=== PATIENT | female | born 1990 | race Caucasian/White ===

== ENCOUNTER → 2020-01-25 11:04 | Outpatient (CLI) | payer BC, SELFPAY ==
--- NOTE | ~2020-01-25 | US_ITS ---
EXAMINATION: US OB transvaginal DATE: 01/25/2020 11:24 INDICATION: Spotting during first trimester TECHNIQUE: Real-time pelvic transabdominal and transvaginal ultrasound was performed. COMPARISON: None. FINDINGS: The uterus measures 7.9 x 3.1 x 4.4 cm. The endometrial complex measures 4 mm. No intrauter ine gestational sac is identified. The right ovary measures 2.7 x 2.9 x 2.3 cm. The left ovary measures 3.4 x 1.9 x 2.6 cm. There is no free fluid in the pelvis. IMPRESSION: 1. of unknown location. Although no intrauterine gestational sac is seen, this may be due t o early gestation. If the patient is clinically stable, recommend followup with serial beta-hCG and u ltrasound. Reviewed, dictated and finalized at location B. IMPRESSION: 1. of unknown location. Although no intrauterine gestational sac is s een, this may be due to early gestation. If the patient is clinically stable, r ecommend followup with serial beta-hCG and ultrasound.
== END ==
PROVIDERS: Visit Provider Obstetrics & Gynecology Gynecology
DX: O26.851 Spotting complicating pregnancy, first trimester (principal); Z3A.00 Weeks of gestation of pregnancy not specified
CPT/HCPCS: 76817

== ENCOUNTER 2020-01-27 10:57 | Outpatient (RCR) | payer BC, SELFPAY ==
[2020-01-25 12:40] LABS: Beta HCG Quantitative < 2.39 mIU/ML
[2020-01-27 11:37] LABS: Beta HCG Quantitative < 2.39 mIU/ML
== END 2020-04-24 23:59 | disposition home or self-care (01) ==
LOC: ANHLAB 10:57
PROVIDERS: Visit Provider Obstetrics & Gynecology Gynecology
DX: O26.851 Spotting complicating pregnancy, first trimester (principal); Z3A.00 Weeks of gestation of pregnancy not specified
CPT/HCPCS: 36415; 84702; 85461

== ENCOUNTER 2020-03-08 13:06 | Outpatient (RCR) | payer BC, SELFPAY | END 2020-06-04 23:59 | disposition home or self-care (01) | LOC: ANHLAB 13:06 | PROVIDERS: Visit Provider Obstetrics & Gynecology Gynecology | DX: O26.21 Pregnancy care for patient with recurrent pregnancy loss, first trimester (principal); Z3A.00 Weeks of gestation of pregnancy not specified | CPT/HCPCS: 36415; 84702 ==

== ENCOUNTER → 2020-03-15 09:43 | Outpatient (CLI) | payer BC, SELFPAY ==
--- NOTE | ~2020-03-15 | US_ITS ---
EXAMINATION: US OB transvaginal DATE: 03/15/2020 10:27 INDICATION: History of spontaneous . TECHNIQUE: Real-time transabdominal obstetric ultrasound. FINDINGS: The uterus measures 9.9 x 6.8 x 7.1 cm. There is an intrauterine gestational sac, with pole devante ntified. The crown rump length measures 1.1 cm, which correlates with a estimated gestational age of 7 weeks 1 day. heart tones are identified measuring 153. The ovaries are normal. IMPRESSION: 1. SL IUP with an EGA of 7 weeks, 1 days (EDC by current ultrasound of 10/31/2020). Reviewed, dictated and finalized at location A. IMPRESSION: 1. SL IUP with an EGA of 7 weeks, 1 days (EDC by current ultrasound of ).
== END ==
PROVIDERS: Visit Provider Obstetrics & Gynecology Gynecology
DX: O26.21 Pregnancy care for patient with recurrent pregnancy loss, first trimester (principal); Z3A.01 Less than 8 weeks gestation of pregnancy
CPT/HCPCS: 76817

== ENCOUNTER 2020-11-06 11:37 | Inpatient (IN) | payer BC, SELFPAY ==
[2020-11-06] VITALS (89 sets, daily range): BP systolic 70–138; BP diastolic 42–83; PULSE 51–153; RESP 18–20; TEMP 36.6–36.8; O2SAT 98–100; BMI 27.8
[2020-11-06 12:25] LABS: Basophils Percent Auto 0.3 % (0.2-1.2); Eosinophils Absolute Auto 0.1 K/mm3 (0-0.3); Eosinophils Percent Auto 0.7 % (0-4.4); Hematocrit 36.6 % (37.0-47.0); Hemoglobin 12.2 g/dL (12.0-15.0); Immature Granulocyte Absolute 0.04 K/mm3 (0.00-0.031); Immature Granulocyte Percent A 0.5 % (0-0.5); Lymphocytes Absolute Auto 1.72 K/mm3 (0.9-3.2); Lymphocytes Percent Auto 19.7 % (18.3-44.2); Mean Corpuscular HGB Conc 33.3 g/dl (32-36); Mean Corpuscular Hemoglobin 30.7 pg (26-34); Mean Platelet Volume 12.3 fl (7.4-10.4); Monocytes Absolute Auto 0.7 K/mm3 (0.1-0.6); Monocytes Percent Auto 8.1 % (2.6-8.5); Neutrophils Absolute Auto 6.2 K/mm3 (1.3-6.7); Neutrophils Percent Auto 70.7 % (45.5-73.1); Platelet Count Result 171 k/mm3 (150-375); Red Blood Count 3.98 M/mm3 (4.2-5.4); Red Cell Distribution Width 12.8 % (11.5-14.5); White Blood Count 8.8 K/mm3 (4.5-10.0)
[2020-11-06] MEDS: LACTATED RINGERS 1,000 ML 125 ML IV CONT ×3 (12:48→20:52)
[2020-11-06] MEDS: OXYTOCIN 30 UNITS/NS 500 ML 30 UNITS/500 ML BAG 6 UNITS IV CONT (12:49)
--- NOTE | 2020-11-06 12:55 | LDADM ---
This patient, Ayanna Aguilar, was admitted to Labor/Delivery/Recovery 104 on 11/06/20 at 11:37. Plans for labor, pain management and were discussed with patient. Patient is oriented to hospital policies and general routines including ID bracelet, bed and alarms, visiting hours, pain management, procedures, bathroom and other care routines, personal items, smoking policy, room service/diet and guest tray routines, infant security routines, and visiting hours. Patient is encouraged to report perceived risks to care and to ask questions if she does not understand what she is told or what she should do. See OBIX for further documentation.
[2020-11-06 18:37] LABS: HIV 1/2 Ab P24 Ag Result Negative (Negative)
--- NOTE | 2020-11-06 19:53 | WPDANESEPP ---
Anes - Eval Pre Procedure Procedure: labor epidural Date/Time: 11/06/20 19:53 Surgeon: kwesi Preop Diagnosis: labor pain Pre Op Diagnosis: IOL Patient Data Age: 30 Gender: F Height: 1.8 m Weight: 90.4 kg Last Vital Signs Temp 36.6 C 11/06/20 18:19 Pulse 67 11/06/20 19:30 Resp 18 11/06/20 18:19 BP 70/50 L 11/06/20 19:30 Allergies Allergy/AdvReac Type Severity Reaction Status Date / Time cefaclor Allergy Unknown Rash Verified 03/20/20 13:29 Home Medications Medication Instructions Recorded Confirmed Type PNV cmb#95-ferrous fumarate-FA 1 tablet PO DAILY 10/04/20 10/04/20 History [] aspirin 81 mg PO DAILY 10/04/20 10/04/20 History ergocalciferol (vitamin D2) 1,250 mcg PO WEEKLY 10/04/20 10/04/20 History [Vitamin D2] Laboratory Tests 11/06/20 11/06/20 11/06/20 12:00 12:00 12:00 WBC 8.8 K/mm3 K/mm3 (4.5-10.0) RBC 3.98 M/mm3 L M/mm3 (4.2-5.4) Hgb 12.2 g/dL g/dL (12.0-15.0) Hct 36.6 % L % (37.0-47.0) MCV 92.0 fl fl (80-100) MCH 30.7 pg pg (26-34) MCHC 33.3 g/dl g/dl (32-36) RDW 12.8 % % (11.5-14.5) Plt Count 171 k/mm3 k/mm3 (150-375) MPV 12.3 fl H fl (7.4-10.4) Immature Gran % (Auto) 0.5 % % (0-0.5) Neut % (Auto) 70.7 % % (45.5-73.1) Lymph % (Auto) 19.7 % % (18.3-44.2) [place] % (Auto) 8.1 % % (2.6-8.5) Eos % (Auto) 0.7 % % (0-4.4) Baso % (Auto) 0.3 % % (0.2-1.2) Lymph # (Auto) 1.72 K/mm3 K/mm3 (0.9-3.2) [place] # (Auto) 0.7 K/mm3 H K/mm3 (0.1-0.6) Eos # (Auto) 0.1 K/mm3 K/mm3 (0-0.3) Baso # (Auto) 0.0 K/mm3 K/mm3 (0.0-0.1) Abs Immat Gran (auto) 0.04 K/mm3 H K/mm3 (0.00-0.031) Absolute Neuts (auto) 6.2 K/mm3 K/mm3 (1.3-6.7) Absolute Nucleated RBC 0.0 K/mm3 K/mm3 (0.0-0.012) Nucleated RBC % 0.0 % % (0.0-0.2) RPR Pending HIV 1&2 Ab/P24 Ag 4thGn Blood Type A Positive Antibody Screen Negative 11/06/20 17:33 WBC RBC Hgb Hct MCV MCH MCHC RDW Plt Count MPV Immature Gran % (Auto) Neut % (Auto) Lymph % (Auto) [place] % (Auto) Eos % (Auto) Baso % (Auto) Lymph # (Auto) [place] # (Auto) Eos # (Auto) Baso # (Auto) Abs Immat Gran (auto) Absolute Neuts (auto) Absolute Nucleated RBC Nucleated RBC % RPR HIV 1&2 Ab/P24 Ag 4thGn Negative (Negative) Blood Type Antibody Screen Patient hx anesthesia problems: none Family hx anesthesia problems: none PMFSH Past Medical History Medical History TARA positive (~08/2018) Rheumatoid arthritis Seropositive rheumatoid arthritis of multiple joints (~2015) Family History Family History Father Hypertension Mother Family history of type 1 diabetes mellitus Other Family history of congestive heart failure Family history of lung cancer Family history of osteoporosis Family history of type 2 diabetes mellitus Social History Social History Smoking status: Never smoker Alcohol intake: current Substance use: never Gender identity (if verbalized by the patient): Female Spiritual care concerns: No Exam Day of Procedure 11/06/20 19:53 Patient weight: normal Heart: regular rate and rhythm Lungs: clear to auscultation and normal air movement Airway: Mallampati scale class II Neurological: alert and oriented
--- NOTE | 2020-11-06 20:02 | WPDANESEFPP ---
Anes - Eval Final PreProcedure Day of Procedure 11/06/20 20:02 Patient weight: normal Heart: regular rate and rhythm Lungs: clear to auscultation and normal air movement Airway: Mallampati scale Neurological: alert and oriented ASA classification: II Anesthetic plan: proceed Anesthesia type and monitoring: regional epidural and standard monitoring Informed Consent: The patient's anesthetic plan and its attendant risks and benefits were discussed with the patient/family/POA. Questions were solicited and answers provided to the satisfaction of the patient/family/POA.
[2020-11-07] VITALS (213 sets, daily range): BP systolic 82–166; BP diastolic 46–129; PULSE 46–261; RESP 16–18; TEMP 36.4–37.1; O2SAT 83–100
[2020-11-07] MEDS: LACTATED RINGERS 1,000 ML 125 ML IV CONT (02:03)
--- NOTE | 2020-11-07 04:28 | WPDOBADMIT ---
Obstetrics - Admit Note Admission Note: record reviewed. No pertinent additions to the history and/or any subsequent changes in the physical findings that are not consistent with the expected course of the were found. Additions to the history and/or subsequent changes in the physical findings follow. Here from office for MIL at 40 6/7 wks 2-3/70/-2 AROM with clear fluid at approx. 1300 FHTs reactive
--- NOTE | 2020-11-07 04:29 | PM.OBPRVD ---
OB - Delivery Note Procedure Delivery date: 11/07/20 events: Labor Induction Intrapartal events: None Induction method: AROM and per pitocin protocol Delivery monitor: external FHT and internal uterine Route of delivery: Laceration Description: Perineal - 2nd Degree (midline with upward B extension of inner labia) Delivery repair: vicryl (3-0 ) Specimen: Yes (placenta) Quantitative Blood Loss (ml): 600 Anesthesia type: Epidural Disposition: floor Baby Date of : 11/07/20 Weeks of gestation at delivery: 41 gender: Male Weight (pounds): 7 Weight (ounces): 15 presentation: vertex position: Right Occiput Anterior Placenta delivery description: Spontaneous cord vessel description: 3 Vessels score one minute: 8 score five minutes: 9
--- NOTE | 2020-11-07 04:31 | PM.OBDSVD ---
DS: Admitting Diagnosis Admitting Diagnosis Admitting Diagnosis: 40 6/7 wks for MIL DS: Discharge Diagnosis Discharge Diagnosis (1) (normal spontaneous vaginal delivery): Code(s): O80 - Encounter for full-term uncomplicated delivery Status: Acute OB - DS: Summary OB Procedures : Ultrasound OB Procedures Intrapartum: Spontaneous Vag Delivery OB Procedures: : None Peripartum Data Delivery Method: Natural Vaginal Laceration Description: Perineal - 2nd Degree (midline with upward B extensions to labia) complications: none Status at Discharge Functional status at discharge: independent ambulation Overall status at discharge: patient is progressing back to baseline Time Spent with Patient Time attestation: Total time spent providing and/or coordinating discharge services: DS: Data Data Completed and Pending Labs on day of discharge: Labs from last 24 hours 11/06/20 11/06/20 11/06/20 17:33 12:00 12:00 WBC RBC Hgb Hct MCV MCH MCHC RDW Plt Count MPV Immature Gran % (Auto) Neut % (Auto) Lymph % (Auto) [place] % (Auto) Eos % (Auto) Baso % (Auto) Lymph # (Auto) [place] # (Auto) Eos # (Auto) Baso # (Auto) Abs Immat Gran (auto) Absolute Neuts (auto) Absolute Nucleated RBC Nucleated RBC % RPR Pending HIV 1&2 Ab/P24 Ag 4thGn Negative Blood Type A Positive Antibody Screen Negative 11/06/20 12:00 WBC 8.8 RBC 3.98 L Hgb 12.2 Hct 36.6 L MCV 92.0 MCH 30.7 MCHC 33.3 RDW 12.8 Plt Count 171 MPV 12.3 H Immature Gran % (Auto) 0.5 Neut % (Auto) 70.7 Lymph % (Auto) 19.7 [place] % (Auto) 8.1 Eos % (Auto) 0.7 Baso % (Auto) 0.3 Lymph # (Auto) 1.72 [place] # (Auto) 0.7 H Eos # (Auto) 0.1 Baso # (Auto) 0.0 Abs Immat Gran (auto) 0.04 H Absolute Neuts (auto) 6.2 Absolute Nucleated RBC 0.0 Nucleated RBC % 0.0 RPR HIV 1&2 Ab/P24 Ag 4thGn Blood Type Antibody Screen Discharge Plan Discharge Attending physician on discharge: Steffanie Barnett Discharging Clinician: Oleg Morgan Anticipated Discharge Date/Time: 11/09/20 04:34 Patient Disposition: Home, Self-Care Activity: may shower and pelvic rest Diet: regular Discharge Instructions: Education: Mom and Baby Guide Given to: Mother Follow-Up: Call your delivering provider's office for an appointment to be seen in: 6 Weeks Mom and baby should come to the [facility] for the follow-up appointment. Appointment Date/Time: Wednesday, November 11, 2020 at 8:00 a.m. What to expect at your follow-up visit: Blood Pressure Check Physical Assessment Call [phone] if you are unable to keep your appointment time. BREAST CARE: * Wear a snug supportive bra. * For engorgement discomfort: Breast Feeding: * Apply warm moist washcloths * Express milk as needed to relieve engorgement * Wear loose clothing * For sore nipples: * Identify correct latch-on * Apply warm moist washcloths before and after nursing * Air dry nipples after nursing * May apply Lansinoh cream to nipples EPISIOTOMY/PERINEAL CARE: * Until bleeding stops, use your maci bottle after urinating * Change your pad frequently throughout the day * You may take sitz baths several times a day (fill your bathtub with warm water and soak for 20 minutes.) Do NOT bathe in the water * No tub baths until seen by your physician - You may shower ACTIVITY: * Rest as much as possible. * Do not exercise or lift anything heavier than your baby (such as laundry or other children.) * Avoid stairs or driving as much as possible. * Do not put anything into the vagina. No douching, tampons, or sexual activity until seen by physician. NOTIFY PHYSICIAN IF YOU HAVE ANY QUESTIONS OR IF ANY OF THE FOLLOWING SYMPTOMS OCCUR: * If your perineum bec
[2020-11-07] MEDS: OXYTOCIN 30 UNITS/NS 500 ML 30 UNITS/500 ML BAG 125 UNITS IV CONT (04:39)
[2020-11-07] MEDS: METHYLERGONOVINE MALEATE 0.2 MG/ML VIAL IM ×2 (05:10→07:08)
[2020-11-07] MEDS: miSOPROStol 200 MCG TABLET 1000 MCG RECTAL ×2 (05:38→09:25)
[2020-11-07] MEDS: fentaNYL CITRATE INJ (*CRX) 100 MCG/2 ML VIAL IV PUSH (06:55)
--- NOTE | 2020-11-07 07:30 | PM.OBPNVD ---
OB - PN: Subj Subjective Date/time seen: 11/07/20 07:30 Called by RN for gush of bleeding 300 cc ordered Methergine called again for less bleeding about 100 with small clots given Cytotec called again with total of 1350 cc (600 delivery+pp)and continuous trickle, arrived to hospital and bleeding had stopped last 3 15 min checks with no clots, minimal trickle plan methergine 0.2 mg po q 6 x 4 OB - PN: Obj Data Labs CBC & Chem 7: 11/06/20 12:00 Labs: Laboratory Results - last 24 hr 11/06/20 11/06/20 11/06/20 12:00 12:00 17:33 WBC 8.8 RBC 3.98 L Hgb 12.2 Hct 36.6 L MCV 92.0 MCH 30.7 MCHC 33.3 RDW 12.8 Plt Count 171 MPV 12.3 H Immature Gran % (Auto) 0.5 Neut % (Auto) 70.7 Lymph % (Auto) 19.7 [place] % (Auto) 8.1 Eos % (Auto) 0.7 Baso % (Auto) 0.3 Lymph # (Auto) 1.72 [place] # (Auto) 0.7 H Eos # (Auto) 0.1 Baso # (Auto) 0.0 Abs Immat Gran (auto) 0.04 H Absolute Neuts (auto) 6.2 Absolute Nucleated RBC 0.0 Nucleated RBC % 0.0 HIV 1&2 Ab/P24 Ag 4thGn Negative Blood Type A Positive Antibody Screen Negative OB - PN A/P Time Spent With Patient Time: Total time spent is greater than 50% in coordination of care (as documented) at patient's floor/unit and/or counseling patient:
[2020-11-07] MEDS: HYDROcodone/acetaminophen (*CRX) 5-325 MG TABLET 1 TAB PO (07:34)
[2020-11-07 08:30] LABS: Rapid Plasma Reagin Non-Reactive (NonReactive)
[2020-11-07] MEDS: WITCH HAZEL 40 PADS 1 PAD TOPICAL (09:38)
[2020-11-07] MEDS: BENZOCAINE 20% AER SPR (*SP) 56 GM CAN 1 SPRAY TOPICAL (09:38)
--- NOTE | 2020-11-07 13:50 | PC.NURSE ---
Consult with pt., mother reports just completed feeding. Mother states eagerly latches with out difficulties or discomfort. Reviewed infant feeding cues, frequencies, duration of feedings, feeding elimination flow sheet, and signs of adequate intake. Demonstrated stimulation techniques to wake infant for feeding. Requested mother call out for assessment next feeding. Reviewed transition to breast milk, signs of adequate intake, and engorgement/relief. Instructed to call ICP if intake/output less than required. Reviewed regular medications mother is taking. Information provided per Chrissy. Reviewed community resources on the [facility] website and in the Mom/Baby guide. Information on outpatient services provided. Mother has no further questions at this time.
[2020-11-07] MEDS: IBUPROFEN 600 MG TABLET PO ×2 (16:51→22:45)
[2020-11-07] MEDS: METHYLERGONOVINE MALEATE 0.2 MG TABLET PO ×2 (16:51→22:50)
[2020-11-07] MEDS: DOCUSATE SODIUM 100 MG CAPSULE PO (16:52)
[2020-11-07] MEDS: DIBUCAINE 1% OINTMENT 30 GM TUBE 1 APPLIC TOPICAL (16:53)
[2020-11-07] MEDS: LANOLIN (LANSINOH) 7.5 GM CREAM 1 APPLIC TOPICAL (16:53)
--- NOTE | 2020-11-07 17:05 | OBPPTRN ---
1214-Patient transferred to post room #288 via wheelchair. Support person present. Oriented to unit, room, information board, rooming in, admission packet and security measures. Patient verbalizes understanding.
[2020-11-07] MEDS: ACETAMINOPHEN 325 MG TABLET 650 MG PO (17:41)
[2020-11-08] MEDS: ACETAMINOPHEN 325 MG TABLET 650 MG PO ×4 (02:10→22:35)
[2020-11-08] MEDS: IBUPROFEN 600 MG TABLET PO ×4 (04:36→22:35)
[2020-11-08] MEDS: METHYLERGONOVINE MALEATE 0.2 MG TABLET PO ×4 (04:36→22:35)
[2020-11-08 04:40] VITALS: BP 118/69; PULSE 74; RESP 16; TEMP 36.3; O2SAT 100
[2020-11-08 05:24] LABS: Hematocrit 23.5 % (37.0-47.0); Hemoglobin 7.9 g/dL (12.0-15.0)
--- NOTE | 2020-11-08 07:40 | WPDANLDPN2 ---
Anes-Prog Note L&D Date/Time: 11/08/20 07:40 Comfortable throughout: labor Neuraxial method: epidural Epidural/Spinal procedure site: clean & non-tender Neuro status: Neuro function grossly intact. Cardiovascular status: normal Respiratory status: normal Airway patency: baseline Mental status: baseline Post-Op hydration status: normal Vital Signs: Last Vital Signs Temp 36.3 C L 11/08/20 04:40 Pulse 74 11/08/20 04:40 Resp 16 11/08/20 04:40 BP 118/69 11/08/20 04:40 Pulse Ox 100 11/08/20 04:40 Pain score (VAS): 0 I/O: Intake & Output 11/07/20 11/07/20 11/08/20 15:59 23:59 07:59 Intake Total 1500 Output Total 509 Balance 991 Post-procedural complaints: none Patient feedback: Patient satisfied with anesthetic care.
[2020-11-08 08:00] VITALS: BP 130/70; PULSE 92; RESP 16; TEMP 36.9; O2SAT 100
--- NOTE | 2020-11-08 10:17 | PM.OBPNVD ---
OB - PN: Subj Subjective Date/time seen: 11/08/20 10:17 Doing well no complaints. denies heavy bleeding, no lightheadedness OB - PN: Obj Data Labs CBC & Chem 7: 11/08/20 04:44 Labs: Laboratory Results - last 24 hr 11/08/20 04:44 Hgb 7.9 L D Hct 23.5 L OB - PN A/P Assessment and Plan (1) (normal spontaneous vaginal delivery): Code(s): O80 - Encounter for full-term uncomplicated delivery Status: Acute Assessment and Plan: continue with pp care and iron supplements. s/p methergine Time Spent With Patient Time: Total time spent is greater than 50% in coordination of care (as documented) at patient's floor/unit and/or counseling patient: Exam GI: Other: ff below umbilicus
[2020-11-08] MEDS: DOCUSATE SODIUM 100 MG CAPSULE PO ×2 (10:44→16:33)
[2020-11-08] MEDS: MULTIVIT/MIN/PREN/FOL AC/IRON TABLET 1 TAB PO (10:45)
[2020-11-08] MEDS: POLYSACCHARIDE IRON COMPLEX 150 MG CAPSULE PO ×2 (10:46→16:33)
--- NOTE | 2020-11-08 18:33 | PC.NURSE ---
Patient viewed the discharge video Mother & Baby Care, The First Two Weeks . Patient was given the opportunity and encouraged to ask questions. Patient verbalized understanding of information shared and has been given the mother/baby guide for home reference.
[2020-11-08 19:32] VITALS: BP 116/64; PULSE 94; RESP 16; TEMP 36.7
[2020-11-09] MEDS: IBUPROFEN 600 MG TABLET PO (05:50)
[2020-11-09] MEDS: ACETAMINOPHEN 325 MG TABLET 650 MG PO ×2 (05:50→12:59)
[2020-11-09 08:30] VITALS: BP 109/61; PULSE 97; RESP 16; TEMP 36.4; O2SAT 98
[2020-11-09] MEDS: POLYSACCHARIDE IRON COMPLEX 150 MG CAPSULE PO (10:20)
[2020-11-09] MEDS: DOCUSATE SODIUM 100 MG CAPSULE PO (10:20)
[2020-11-09] MEDS: MULTIVIT/MIN/PREN/FOL AC/IRON TABLET 1 TAB PO (10:22)
[2020-11-11 07:53] VITALS: BP 125/75; PULSE 102; RESP 20; TEMP 36.8; O2SAT 100
== END 2020-11-09 14:23 | disposition home or self-care (01) | DRG 806 ==
LOC: ANHLDR 11-07 04:35 → ANHOB2 11-07 13:58 → ANHLDR 11-11 12:37 → ANHOB2 11-11 12:37
PROVIDERS: Admitting Provider Obstetrics & Gynecology Gynecology; PCP Family Medicine; Visit Provider Obstetrics & Gynecology
DX: O99.892 Other specified diseases and conditions complicating childbirth (principal); O72.1 Other immediate postpartum hemorrhage; Z37.0 Single live birth; Z3A.41 41 weeks gestation of pregnancy; M06.9 Rheumatoid arthritis, unspecified; O36.8330 Maternal care for abnormalities of the fetal heart rate or rhythm, third trimester, not applicable or unspecified; O70.1 Second degree perineal laceration during delivery
CPT/HCPCS: 36415; 85014; 85018; 85025; 86592; 86703; 86850; 86900; 86901; 88307; A9270; G0432; J2210; J2590; J2795; J3010; J7120

== ENCOUNTER → 2021-05-22 08:07 | Outpatient (CLI) | payer BC, SELFPAY ==
--- NOTE | ~2021-05-22 | XR_ITS ---
EXAMINATION: XR wrist LT 2V, XR hand LT 2V, XR hand RT 2V, XR wrist RT 2V DATE: 05/22/2021 08:51 INDICATION: Multiple joint pain at the bilateral hands and wrists. TECHNIQUE: 1. Posteroanterior and lateral views of the left wrist were obtained. 2. Dorsal palmar and lateral views of the left hand were obtained. 3. Posteroanterior and lateral views of the right wrist were obtained. 2. Dorsal palmar and lateral views of the right hand were obtained. COMPARISON: None. FINDINGS: Bilateral 1/2 to 2 mm ulnar minus variance. Otherwise normal alignment of the bilateral hands and wri sts. No fracture identified. Joint spaces are normal at the left hand and wrist. Again seen is mild relatively uniform joint space narrowing at the first metacarpophalangeal joint with small periartic ular erosions at the radial and ulnar sides of the base of the proximal phalanx. Joint spaces otherwi se normal throughout the remainder of the right hand and wrist.. No focal soft tissue swelling. IMPRESSION: 1. No significant interval change in a uniform joint space narrowing and small periarticular erosions at the right first metacarpophalangeal joint which is suspicious for inflammatory arthritis, particu larly rheumatoid arthritis. Left hand and wrist are unremarkable. Reviewed, dictated and finalized at location A. [employer]IANCE LEADER IMPRESSION: 1. No significant interval change in a uniform joint space narrowing and small periarticular erosions at the right first metacarpophalangeal joint which is robles spicious for inflammatory arthritis, particularly rheumatoid arthritis. Left fine nd and wrist are unremarkable. IMPRESSION: 1. No significant interval change in a uniform joint space narrowing and small periarticular erosions at the right first metacarpophalangeal joint which is robles spicious for inflammatory arthritis, particularly rheumatoid arthritis. Left fine nd and wrist are unremarkable. IMPRESSION: 1. No significant interval change in a uniform joint space narrowing and small periarticular erosions at the right first metacarpophalangeal joint which is robles spicious for inflammatory arthritis, particularly rheumatoid arthritis. Left fine nd and wrist are unremarkable.
--- NOTE | ~2021-05-22 | XR_ITS ---
EXAMINATION: XR ankle LT 2V, XR foot RT 2V, XR foot LT 2V, XR ankle RT 2V DATE: 05/22/2021 08:51 INDICATION: Multiple joint pain at the bilateral feet and ankles. TECHNIQUE: 1. Anteroposterior and lateral view of the left ankle were obtained. 2. Dorsoplantar and lateral views of the left foot were obtained. 3. Anteroposterior and lateral view of the left ankle were obtained. 4. Dorsoplantar and lateral views of the left foot were obtained. COMPARISON: Bilateral foot radiographs dated 08/09/2018 FINDINGS: Normal alignment at the bilateral feet and ankles. No fracture. Unchanged chronic tiny juxta articula r erosion at the medial head of the left first proximal phalanx. Moderate relatively uniform joint sp tad narrowing at the right fifth metatarsophalangeal joint with periarticular erosions at the medial and lateral base of the fifth proximal phalanx and large erosions at the medial lateral sides of the head of the fifth metatarsal. Similar pattern of juxta articular erosions at the medial and lateral a spects of the head of the left fifth metatarsal and more subtly at the medial base of the left fifth proximal phalanx with slightly less severe mild uniform joint space narrowing at the left fifth metat arsophalangeal joint. Similarly there is relatively symmetric mild joint space narrowing at the bilat eral first interphalangeal joints with unchanged tiny periarticular erosions at the medial side of th e heads of the first proximal phalanges. Remaining joint spaces are relatively preserved. Soft tissue s are unremarkable at the bilateral feet and ankles with no ankle joint effusions. IMPRESSION: 1. No significant interval change in a relatively symmetric pattern of uniform joint space narrowing and periarticular erosions at the bilateral fifth metatarsophalangeal joints and first interphalangea l joints consistent with an inflammatory arthritis most suspicious for rheumatoid. Reviewed, dictated and finalized at location A. IMPRESSION: 1. No significant interval change in a relatively symmetric pattern of uniform joint space narrowing and periarticular erosions at the bilateral fifth metatar sophalangeal joints and first interphalangeal joints consistent with an inflamm atory arthritis most suspicious for rheumatoid. IMPRESSION: 1. No significant interval change in a relatively symmetric pattern of uniform joint space narrowing and periarticular erosions at the bilateral fifth metatar sophalangeal joints and first interphalangeal joints consistent with an inflamm atory arthritis most suspicious for rheumatoid. IMPRESSION: 1. No significant interval change in a relatively symmetric pattern of uniform joint space narrowing and periarticular erosions at the bilateral fifth metatar sophalangeal joints and first interphalangeal joints consistent with an inflamm atory arthritis most suspicious for rheumatoid.
== END ==
PROVIDERS: Visit Provider Internal Medicine Rheumatology
DX: M25.50 Pain in unspecified joint (principal)
CPT/HCPCS: 73100; 73120; 73600; 73620

== ENCOUNTER → 2022-12-23 13:58 | Outpatient (CLI) | payer BC, SELFPAY ==
--- NOTE | ~2022-12-23 | XR_ITS ---
. EXAMINATION: XR hand LT 2V, XR hand RT 2V, XR wrist RT 2V, XR wrist LT 2V DATE: 12/23/2022 15:02 INDICATION: Pain and swelling at multiple joints in the bilateral hands and wrists. TECHNIQUE: 1. Posteroanterior and lateral views of the left wrist were obtained. 2. Dorsal palmar and lateral views of the left hand were obtained. 3. Posteroanterior and lateral views of the right wrist were obtained. 4. Dorsal palmar and lateral views of the right hand were obtained. COMPARISON: None. FINDINGS: End seen is bilateral 1-2 mm ulnar minus variance. Alignment of the hands and wrists is otherwise nor mal. No fracture identified. Again seen is relatively uniform joint space narrowing at the right fir st metacarpophalangeal joint. Remaining joint spaces in the bilateral hands and wrists are relatively preserved. No focal soft tissue swelling. IMPRESSION: 1. Unchanged mild relatively uniform joint space narrowing at the right first metacarpophalangeal anthony nt. No new joint space narrowing or erosions to suggest progression of reported known rheumatoid arth ritis. Reviewed, dictated and finalized at location L. IMPRESSION: 1. Unchanged mild relatively uniform joint space narrowing at the right first m etacarpophalangeal joint. No new joint space narrowing or erosions to suggest p rogression of reported known rheumatoid arthritis. IMPRESSION: 1. Unchanged mild relatively uniform joint space narrowing at the right first m etacarpophalangeal joint. No new joint space narrowing or erosions to suggest p rogression of reported known rheumatoid arthritis. IMPRESSION: 1. Unchanged mild relatively uniform joint space narrowing at the right first m etacarpophalangeal joint. No new joint space narrowing or erosions to suggest p rogression of reported known rheumatoid arthritis.
--- NOTE | ~2022-12-23 | XR_ITS ---
EXAMINATION: XR foot RT 2V, XR ankle LT 2V, XR ankle RT 2V, XR foot LT 2V DATE: 12/23/2022 15:02 INDICATION: Joint pain at the bilateral feet and ankles. TECHNIQUE: 1. Anteroposterior and lateral view of the left ankle were obtained. 2. Dorsoplantar and lateral views of the left foot were obtained. 3. Anteroposterior and lateral view of the right ankle were obtained. 4. Dorsoplantar and lateral views of the right foot were obtained. COMPARISON: None. FINDINGS: Alignment of the bilateral feet and ankles is normal. No fracture or osteochondral lesion. No signifi cant change in a relatively symmetric pattern of joint space narrowing with periarticular erosions at the bilateral fifth metatarsophalangeal joints and bilateral first interphalangeal joints. Remaining joint spaces are relatively preserved. No new erosions identified. No ankle joint effusions. The sof t tissues are unremarkable. IMPRESSION: 1. No significant interval change in symmetric pattern of infiltrate space narrowing and periarticula r erosions at the bilateral fifth metatarsophalangeal and first interphalangeal joints consistent wit h inflammatory arthritis which would include rheumatoid arthritis. Reviewed, dictated and finalized at location L. IMPRESSION: 1. No significant interval change in symmetric pattern of infiltrate space narr owing and periarticular erosions at the bilateral fifth metatarsophalangeal and first interphalangeal joints consistent with inflammatory arthritis which woul d include rheumatoid arthritis. IMPRESSION: 1. No significant interval change in symmetric pattern of infiltrate space narr owing and periarticular erosions at the bilateral fifth metatarsophalangeal and first interphalangeal joints consistent with inflammatory arthritis which woul d include rheumatoid arthritis. IMPRESSION: 1. No significant interval change in symmetric pattern of infiltrate space narr owing and periarticular erosions at the bilateral fifth metatarsophalangeal and first interphalangeal joints consistent with inflammatory arthritis which woul d include rheumatoid arthritis.
== END ==
PROVIDERS: PCP Internal Medicine Rheumatology; Visit Provider Internal Medicine Rheumatology
DX: M25.50 Pain in unspecified joint (principal)
CPT/HCPCS: 73100; 73120; 73600; 73620

== ENCOUNTER 2023-09-29 14:16 | Outpatient (CLI) | payer BC, SELFPAY ==
--- NOTE | ~2023-09-29 | US_ITS ---
EXAMINATION: US OB <= 14 weeks fetus DATE: 09/29/2023 14:35 INDICATION: Assess viability. TECHNIQUE: Real-time transabdominal obstetric ultrasound. FINDINGS: No prior studies for comparison. The uterus measures 10.1 x 12.3 x 10.3 cm. There is an intrauterine gestational sac, with pole identified. The crown rump length measures 3.96 cm, which correlates with a estimated gestational ag e of 10 weeks 6 days. heart tones are identified measuring 160 BPM. There is a subchorionic h emorrhage measuring 3.9 x 2.7 x 1.2 cm. Ovaries are not visualized. IMPRESSION: 1. SL IUP with an EGA of 10 weeks, 6 days (EDC by current ultrasound of 04/20/2024). 2: Subchorionic hemorrhage measuring 3.9 x 2.7 x 1.2 cm. Reviewed, dictated and finalized at location A. IMPRESSION: 1. SL IUP with an EGA of 10 weeks, 6 days (EDC by current ultrasound of 024). 2: Subchorionic hemorrhage measuring 3.9 x 2.7 x 1.2 cm.
== END 2023-09-29 14:17 ==
LOC: GOSHIMG 14:20
PROVIDERS: PCP Obstetrics & Gynecology Gynecology; Visit Provider Obstetrics & Gynecology Gynecology
DX: O36.80X0 Pregnancy with inconclusive fetal viability, not applicable or unspecified (principal); Z3A.10 10 weeks gestation of pregnancy
CPT/HCPCS: 76801

== ENCOUNTER 2023-10-27 09:43 | Outpatient (CLI) | payer BC, SELFPAY ==
--- NOTE | ~2023-10-27 | US_ITS ---
EXAMINATION: US OB follow up DATE: 10/27/2023 10:04 INDICATION: Subchorionic hematoma follow-up. TECHNIQUE: Real-time ultrasound of the pelvis was performed. COMPARISON: Ultrasound 09/29/2023 FINDINGS: There is a single living fetus in transverse lie. The placenta is anterior and covers the internal c ervical os. heart rate is 143 beats per minute (bpm). The amniotic fluid volume is subjectively normal. The following biometric data were obtained: Biparietal diameter (BPD): 2.7 cm; head circumference (HC): 10.8 cm; abdominal circumference (AC): 9. 1 cm; femur length (FL): 1.6 cm. These measurements are discordant with low cephalic index. Estimated weight is 112 g +/- 17 g, which correlates with the 46th percentile when 04/20/24 is u sed as estimated date of delivery. As single measurements, these parameters are each equal to the following estimated gestational ages: BPD: 14 weeks 5 days. HC: 15 weeks 1 days. AC: 15 weeks 2 days. FL: 14 weeks 4 days. estimated gestational age based solely on measurements from this exam is 15 weeks 0 days +/- 1 weeks 0 days. IMPRESSION: 1. Single living fetus in transverse lie. 2. Estimated weight is 112 g +/- 17 g, which correlates with the 46th percentile when 04/20/24 is used as estimated date of delivery. This date was set by ultrasound on 09/29/2023. 3. Low cephalic index. 4. Placenta previa. Follow-up ultrasound is recommended to confirm resolution. Reviewed, dictated and finalized at location A. IMPRESSION: 1. Single living fetus in transverse lie. 2. Estimated weight is 112 g +/- 17 g, which correlates with the 46th pe rcentile when 04/20/24 is used as estimated date of delivery. This date was set by ultrasound on 09/29/2023. 3. Low cephalic index. 4. Placenta previa. Follow-up ultrasound is recommended to confirm resolution.
== END 2023-10-27 09:44 ==
LOC: GOSHIMG 09:45
PROVIDERS: PCP Obstetrics & Gynecology Gynecology; Visit Provider Obstetrics & Gynecology Gynecology
DX: O44.42 Low lying placenta NOS or without hemorrhage, second trimester (principal); O36.8920 Maternal care for other specified fetal problems, second trimester, not applicable or unspecified; Z3A.15 15 weeks gestation of pregnancy
CPT/HCPCS: 76816